=== PATIENT | female | born 1980 | race Caucasian/White ===

== ENCOUNTER 2024-09-10 09:04 | Emergency (ER) | payer BC, SELFPAY ==
[2024-09-10 09:07] VITALS: BP 114/79; PULSE 74; RESP 16; TEMP 36.1; O2SAT 98; BMI 28.3
--- NOTE | 2024-09-10 09:23 | ED_ITS ---
HPI - Skin/Abscess/Foreign Bdy General Date Seen: 09/10/24 Chief complaint: Skin/Abscess/Foreign Body Stated complaint: possible cellulitis on face Time Seen by Provider: 09/10/24 09:16 Source: patient Mode of arrival: ambulatory Limitations: no limitations History of Present Illness HPI narrative: Patient is a 44-year-old female presenting to emergency department for concern Of cellulitis on her nose. states has been there for the past week she thinks it has been from her glasses rubbing up against her nose. She has not been wearing her glasses for the past few days because of that. Went to urgent care yesterday and started on Keflex. She is taking 4 doses so for and was told to come back for re-evaluation if it continues to spread due to help close the infection is to her eyes. She denies any associated pain but does have some mild scratchy sensation to the medial border of her eyes bilaterally. Denies any other symptoms. Overall she states she is feeling well. No other concerns noted Related Data Home Medications ?Medication ?Instructions ?Recorded ?Confirmed valacyclovir 500 mg tablet 500 mg PO Q12H 09/09/24 (Valtrex) Previous Rx's ?Medication ?Instructions ?Recorded cephalexin 500 mg capsule 500 mg PO QID 10 days #40 caps 09/09/24 sulfamethoxazole 800 1 tab PO BID #10 tabs 09/10/24 mg-trimethoprim 160 mg tablet (Bactrim DS) Allergies Allergy/AdvReac Type Severity Reaction Status Date / Time gluten Allergy Intermediate Verified 09/10/24 09:11 codeine AdvReac GI upset Verified 09/09/24 12:23 Review of Systems Narrative: Pertinent systems reviewed and were negative unless stated in HPI PFSH PFSH Medical History Conjunctivitis ?H10.9 - Unspecified conjunctivitis (ICD-10) Sinusitis ?J32.9 - Chronic sinusitis, unspecified (ICD-10) Social History Smoking Status: Never smoker Do you use any of these nicotine containing products: None How often do you have a drink containing alcohol: 2-3 times a week How many standard drinks containing alcohol do you have on a typical day: 1 or 2 How often do you have six or more drinks on one occasion: Never AUDIT-C Alcohol total score: 3 Non-prescribed substance use: denies use Exam Narrative: Exam Narrative: Const: Well-nourished, Well-developed, in mild distress Eyes: PERRL, no conjunctival injection, and symmetrical lids HENT: Atraumatic external ears. Moist mucous membranes. he was seem a noted on the bridge of the nose about [id number] in size MSK:Extremities w/o deformity, Normal Active ROM Skin: Warm, Dry. No rashes or lesions. Neuro: Normal Muscle tone, No focal neurological deficits. Psych: Awake, Alert, & Oriented x3. Appropriate mood and affect. Const: Vital Signs, click to edit/add: Vital Signs - 24 hr 09/10/24 09:07 Temperature 97 F L Pulse Rate [Pulse Oximeter] 74 Respiratory Rate 16 Blood Pressure [Ri ght Upper Arm] 114/79 Pulse Oximetry 98 Oxygen Delivery Me thod Room Air Course Vital Signs Vital signs: Initial Vital Signs Temperature 97 F L 09/10/24 09:07 Temperature Source Temporal Artery Scan 09/10/24 09:07 Pulse Rate 74 09/10/24 09:07 Respiratory Rate 16 09/10/24 09:07 Blood Pressure 114/79 09/10/24 09:07 Blood Pressure Mean 90 09/10/24 09:07 Blood Pressure Position Sitting 09/10/24 09:07 Pulse Oximetry 98 09/10/24 09:07 Oxygen Delivery Method Room Air 09/10/24 09:07 Vital Signs Temperature 97 F L 09/10/24 09:07 Pulse Rate 74 09/10/24 09:07 Respiratory Rate 16 09/10/24 09:07 Blood Pressure 114/79 09/10/24 09:07 Pulse Oximetry 98 09/10/24 09:07 Oxygen Delivery Method Room Air 09/10/24 09:07 Temperature 97 F L 09/10/24 09:07 Pulse Rate 74 09/10/24 09:07 Respiratory Rate 16 09/10/24 09:07 Blood Pressure 114/79 09/10/24 09:07 Pulse Oximetry 98 09/10/24 09:07 Oxygen Delivery Method Room Air 09/10/24 09:07 MDM - Skin/Abscess/Foreign Bdy MDM Narrative Medical decision making narrative: patient is a 42-year-old female presenting for facial cellulitis. Is on her nose likely came from skin breakdown from her glasses. She has no signs of orbital cellulitis at this time. She is overall doing well do not believe lab work is necessary. while she does not meet criteria for outpatient antibiotic failure I will add on Bactrim to her current cephalexin due to concern of the infection moving toward words the eye. I did give her return precautions for signs of orbital cellulitis. She is agreeable to this plan Discharge Plan Discharge Clinical Impression: Cellulitis Qualifiers: Site of cellulitis: face Qualified Code(s): L03.211 - Cellulitis of face Patient Disposition: Home, Self-Care Condition: Stable Instructions: Cellulitis (ED) Additional Instructions: continue take the cephalexin previously describing also start taking the Bactrim. If you start having pain with eye movement return for re-evaluation as his could be a sign of orbital cellulitis which would require more intensive treatment. He may see some redness around the eyes but this is not a concern unless you have pain within the eye socket or start developing vision issues. Return for any other new worsening symptoms. You may see some slight increase in redness tomorrow as the antibiotics are started kicking but you should have improvement within a few days Prescriptions: New sulfamethoxazole-trimethoprim [Bactrim DS] 800-160 mg tablet 1 tab PO BID Qty: 10 0RF No Action valacyclovir [Valtrex] 500 mg tablet 500 mg PO Q12H cephalexin 500 mg capsule 500 mg PO QID 10 Days Qty: 40 0RF Follow Up/Referrals: Michael Duncan MD [Primary Care Provider] - Stand Alone Forms: [employer] Info Instructions
== END 2024-09-10 09:35 | disposition home or self-care (01) ==
LOC: ED 09:38
PROVIDERS: Emergency Provider Student in an Organized Health Care Education/Training Program; PCP Family Medicine
DX: L03.211 Cellulitis of face (principal)
CPT/HCPCS: 99282; 99283